=== PATIENT | male | born 1965 | race Two or more races ===

== ENCOUNTER → 2021-04-28 | Emergency (ER) | payer OTHER ==
[~2021-04-28] VITALS: Ht 172.7 cm; Wt 72.6 kg
[~2021-04-28] MED LIST: KETOROLAC TROMETH 60MG/2ML VIAL IM ONE
[2021-04-28 19:20] VITALS: BP 138/70
== END | disposition home or self-care (01) ==
LOC: EDUNIT# 17:25 → EDBD 17:35 → ER 17:35
DX: M51.26 Other intervertebral disc displacement, lumbar region (principal); M43.16 Spondylolisthesis, lumbar region; F17.210 Nicotine dependence, cigarettes, uncomplicated; V49.59XA Passenger injured in collision with other motor vehicles in traffic accident, initial encounter; Y93.89 Activity, other specified; Y92.410 Unspecified street and highway as the place of occurrence of the external cause; Y99.8 Other external cause status
CPT/HCPCS: 72100; 96372; 99283; J1885

== ENCOUNTER 2025-03-17 02:08 | Inpatient (IN) | payer OTHER ==
[2025-03-17] VITALS (7 sets, daily range): BP systolic 110–138; BP diastolic 67–86; PULSE 70–88; RESP 12–19; TEMP 98.1–98.6; O2SAT 94–97
[~2025-03-17] VITALS: Ht 175.3 cm; Wt 86.0 kg
[2025-03-17] MEDS: IOHEXOL 300 MG/ML 100ML BOTTLE IJ ONE (02:18)
--- NOTE | 2025-03-17 02:29 | ED.PDOC ---
History of Present Illness HPI Comments 60 y/o M presents with 1 hour RUQ pain. He rates it a 10/10 in severity and endorses on 1x episode of nausea and vomiting prior to arrival. No recent travel, injuries, spoiled food or illicit substances consumption, abdominal surgeries, or prior history of symptoms endorsed. Patient denies having any bilious or bloody vomitus, diarrhea, urinary symptoms, fever, chills, or further associated symptoms. Time Seen by MD: 02:10 Primary Care Provider: NONE Reviewed Notes: Nurses Notes, Medications, Allergies Allergies: Coded Allergies: NO KNOWN ALLERGIES (Unverified , 02/26/13) Information Source: Patient Mode of Arrival: Ambulatory Severity: Moderate Timing: Hours Duration: Since onset Prehospital treatment: None Past Medical History PAST MEDICAL HISTORY: Denies Surgical History: Denies all surgeries Family History Family History: No family hx of Cancer, No family hx of Heart [place] Social History Smoker: Less Than 1 Pack/Day Alcohol: Occasionally Drugs: Denies Drug Use Lives In: Home All Other Systems: Reviewed and Negative (Comprehensive systems review obtained and negative except for what is stated in the HPI.) Physical Exam General Appearance: No Apparent Distress, Normal HEENT: Normal ENT Inspection, Pharynx Normal, TMs Normal Neck: Full Range of Motion, Non-Tender, Normal, Normal Inspection Respiratory: Chest Non-Tender, Lungs Clear, No Accessory Muscle Use, No Respiratory Distress, Normal Breath Sounds Cardiovascular: No Edema, No JVD, No Murmur, No Gallop, Normal Peripheral Pulses, Regular Rate/Rhythm Breast Exam: Deferred Gastrointestinal: No Organomegaly, No Pulsatile Mass, Normal Bowel Sounds, RUQ (tenderness), Soft, Tenderness (RUQ) Genitalia: Deferred Pelvic: Deferred Rectal: Deferred Extremities: No calf tenderness, Normal capillary refill, Normal inspection, Normal range of motion, Non-tender, No pedal edema Musculoskeletal : Apperance: Normal Neurologic: Alert, 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 Was a procedure done?: No Differential Dx Considerations may include: Gastritis, gastroenteritis, GERD, PUD, cholecystitis, cholelithiasis, nephrolithiasis, UTI, viral syndrome, among others X-Ray, Labs, Meds, VS Vital Signs Date Time Temp Pulse Resp B/P (MAP) Pulse Ox O2 Delivery O2 Flow Rate FiO2 03/17/25 04:19 65 17 121/71 03/17/25 03:35 91 17 121/71 03/17/25 03:05 98.4 73 18 135/77 (96) 96 98.4 03/17/25 03:05 73 18 96 Room Air* 0 21 03/17/25 03:05 73 12 135/77 03/17/25 02:10 98.6 84 16 136/86 (103) 97 98.6 Lab Test 03/17/25 04:21 03/17/25 02:24 Range/Units Lactic Acid Level Pending White Blood Count 9.8 4.4-10.8 10^3/uL Red Blood Count 4.42 L 4.5-5.90 10^6/uL Hemoglobin 14.2 13.5-17.5 g/dL Hematocrit 41.8 41.0-53.0 % Mean Corpuscular Volume 94.5 80.0-100.0 fL Mean Corpuscular Hemoglobin 32.1 H 28.0-32.0 pg Mean Corpuscular Hemoglobin Concent 34.0 32.0-36.0 g/dL Red Cell Distribution Width 14.1 11.8-14.3 % Platelet Count 170 140-450 10^3/uL Mean Platelet Volume 8.8 6.9-10.8 fL Neutrophils (%) (Auto) 78.4 37.0-80.0 % Lymphocytes (%) (Auto) 14.7 10.0-50.0 % Monocytes (%) (Auto) 6.0 0.0-12.0 % Eosinophils (%) (Auto) 0.6 0.0-7.0 % Basophils (%) (Auto) 0.3 0.0-2.0 % Neutrophils # (Auto) 7.7 1.6-8.6 10 ^3/uL Lymphocytes # (Auto) 1.4 0.4-5.4 10 ^3/uL Monocytes # (Auto) 0.6 0-1.3 10 ^3/uL Eosinophils # (Auto) 0.1 0-0.8 10 ^3/uL Basophils # (Auto) 0 0-0.2 10 ^3/uL Nucleated Red Blood Cells 0.1 % Sodium Level 140 136-145 mmol/L Potassium Level 3.7 3.5-5.1 mmol/L Chloride Level 106 98-107 mmol/L Carbon Dioxide Level 28 20-31 mmol/L Anion Gap 6 5-15 Blood Urea Nitrogen 13 9-23 mg/dL Creatinine 1.00 0.700-1.30 mg/dL Glomerular Filtration Rate Calc 87 >90 mL/min BUN/Creatinine Ratio 13.0 10.0-20.0 Serum Glucose 120 H 74-106 mg/dL Calcium Level 9.1 8.7-10.4 mg/dL Total Bilirubin 0.3 0.2-1.0 mg/dL Aspartate Amino Transferase (AST) 15 13-40 U/L Alanine Aminotransferase (ALT) 22 7-40 U/L Alkaline Phosphatase 77 46-116 U/L Total Protein 6.7 5.7-8.2 g/dL Albumin 4.4 3.2-4.8 g/dL Lipase 63 H 12-53 U/L Plasma/Serum Blood Alcohol < 3.0 <10 mg/dL Current Medications Medications (Trade) Dose Ordered Sig/Marciano Route Start Time Stop Time Status Last Admin Sodium Chloride 1,000 ml @ 1,000 mls/hr Q1H ONCE IV 03/17/25 02:15 03/17/25 03:14 DC 03/17/25 03:06 Ondansetron HCl (Zofran) 4 mg ONCE ONCE IV 03/17/25 02:15 03/17/25 02:16 DC 03/17/25 03:06 Morphine Sulfate 4 mg ONCE ONCE IV 03/17/25 02:15 03/17/25 02:16 DC 03/17/25 03:05 Sodium Chloride 1,000 ml @ 1,000 mls/hr Q1H ONCE IV 03/17/25 04:15 03/17/25 05:14 03/17/25 04:12 Morphine Sulfate 4 mg ONCE ONCE IV 03/17/25 04:15 03/17/25 04:16 DC 03/17/25 04:19 Ondansetron HCl (Zofran) 4 mg ONCE ONCE IV 03/17/25 04:15 03/17/25 04:16 DC 03/17/25 04:18 Cefazolin Sodium/ Dextrose 50 ml @ 50 mls/hr ONCE ONCE IV 03/17/25 04:15 03/17/25 05:14 03/17/25 04:19 Time of 1ST Reevaluation: 02:40 Reevaluation 1ST: Unchanged Patient Education/Counseling: Diagnosis, Treatment Family Education/Counseling: No Family Present Additional Information Previous visits reviewed: April 28, 2021 encounter for back pain The following tests were ordered, and results were reviewed by me: CT abdomen/pelvis w/IV contrast, blood alcohol, lipase, CMP, CBC Additional Information was gathered from interviewing the following independent historians: N/A I reviewed and agreed with the following test results read by other providers: CT abdomen/pelvis w/IV contrast I discussed treatment and results with medical personnel and: patient Sepsis Sepsis Reasesment Focused Exam Orders: Laboratory Tests 03/17/25 04:21: Departure 1 Departure Time of Disposition: 04:50 (Patient presented with abdominal pain that was concerning for possible appendicits, gastritis, cholecystitis, colitis, gastroenteritis, sbo, or orther possible surgical emergency. Data: 1. I ordered and reviewed the result of at least 3 labs including a CBC, BMP, and Urinalysis. 2. I independently interpreted the following tests: CT Abdoment and Pelvis is co ncerning for cholelithiasis .Risk:This patient has a high risk of morbidity due to further diagnostic testing or treatment and may suffer from an acute abdominal process disorder. Workup reveals cholelithiasis and intractable abdominal pain and patient should be admitted for further workup. and possible expert consultation. ) Impression: Primary Impression: Intractable abdominal pain Additional Impression: Cholelithiasis Qualified Codes: K80.00 - Calculus of gallbladder with acute cholecystitis without obstruction Disposition: ADMITTED INPATIENT Admit to: Med Surg Condition: Serious Critical Care Note Critical Care Time?: Yes Critical care comment: Intractable abdominal pain Authorized and Performed by: Nidia Ríos MD Total critical care time: Approximately 48 minutes Due to a high probability of clinically significant, life threatening deterioration, the patient required my highest level of preparedness to intervene emergently and I personally spent this critical care time directly and personally managing the patient. This critical care time included obtaining a history; examining the patient; pulse oximetry; ordering and review of studies; arranging urgent treatment with development of a management plan; evaluation of patient's response to treatment; frequent reassessment; and, discussions with other providers. This critical care time was performed to assess and manage the high probability of imminent, life-threatening deterioration that could result in multi-organ failure. It was exclusive of separately billable procedures and treating other patients and teaching time. Please see my other sections and the rest of the note for further information on patient assessment and treatment. Stability Stability form required: No Heart Score Heart Score: Heart Score Response (Comments) Value History N/A 0 EKG N/A 0 Age N/A 0 Risk Factors N/A 0 Troponin N/A 0 Total 0 I personally scribed for NIDIA RÍOS MD ([email or web address]) on 03/17/25 at 02:29. Electronically submitted by Humberto Murrell ([email or web address]). NIDIA RÍOS MD Mar 17, 2025 02:29
[2025-03-17 02:33] LABS: Basophils # (auto) 0 10 ^3/uL (0-0.2); Basophils % (auto) 0.3 % (0.0-2.0); Eosinophils # (auto) 0.1 10 ^3/uL (0-0.8); Eosinophils % (auto) 0.6 % (0.0-7.0); Hematocrit 41.8 % (41.0-53.0); Hemoglobin 14.2 g/dL (13.5-17.5); Lymphocytes # (auto) 1.4 10 ^3/uL (0.4-5.4); Lymphocytes % (auto) 14.7 % (10.0-50.0); Mean Corpuscular Hemoglobin 32.1 pg (28.0-32.0); Mean Corpuscular Volume 94.5 fL (80.0-100.0); Monocytes # (auto) 0.6 10 ^3/uL (0-1.3); Neutrophils # (auto) 7.7 10 ^3/uL (1.6-8.6); Neutrophils % (auto) 78.4 % (37.0-80.0); Nucleated Red Blood Cells % 0.1 %; Platelet Count (auto) 170 10^3/uL (140-450); Red Blood Cells 4.42 10^6/uL (4.5-5.90); Red Cell Distribution Width 14.1 % (11.8-14.3); White Blood Cell 9.8 10^3/uL (4.4-10.8)
[2025-03-17 02:56] LABS: Alanine Aminotransferase 22 U/L (7-40); Albumin 4.4 g/dL (3.2-4.8); Alkaline Phosphatase 77 U/L (46-116); Anion Gap 6 (5-15); Aspartate Aminotransferase 15 U/L (13-40); Blood Urea Nitrogen 13 mg/dL (9-23); Calcium 9.1 mg/dL (8.7-10.4); Carbon Dioxide 28 mmol/L (20-31); Chloride 106 mmol/L (98-107); Glucose 120 mg/dL (74-106); Potassium 3.7 mmol/L (3.5-5.1); Sodium 140 mmol/L (136-145); Total Protein 6.7 g/dL (5.7-8.2)
[2025-03-17 02:57] LABS: Bilirubin, Total 0.3 mg/dL (0.2-1.0); Lipase 63 U/L (12-53)
[2025-03-17] MEDS: MORPHINE SULFATE 4 MG/ML SYR/VIAL IV ONE ×2 (03:05→04:19)
[2025-03-17] MEDS: SODIUM CHLORIDE 0.9% 1,000 ML IV ONE ×2 (03:06→04:12)
[2025-03-17] MEDS: ONDANSETRON HCL 4 MG/2 ML VIAL IV ONE ×2 (03:06→04:18)
[2025-03-17 03:10] LABS: Blood Alcohol < 3.0 mg/dL (<10)
--- NOTE | 2025-03-17 04:15 | DVH ---
Exam: CT CT AB PEL WITH IV CON ONLY History: ruq pain Comparison Study: None Contrast: Type of contrast: Omnipaque 300 Contrast injected: 100 cc Contrast wasted: 0 TECHNIQUE: CT scan of the abdomen pelvis was performed with intravenous contrast. Coronal and sagitt al reformatted images are submitted. Radiation Dose Information: CT Dose: CTDI volume is 19.79 mGy. Dose-length product is 1060.3 mGy*cm FINDINGS: Lung Bases: No acute or significant lung base finding. Normal heart size. No pleural or pericardial effusion. Liver: The liver is normal in size. No focal lesions. Normal hepatic vascular enhancement. Gallbladder and Biliary Tree: Gallstone. No intrahepatic biliary ductal dilatation. Spleen: Unremarkable Pancreas: The pancreas is normal in appearance without focal lesions or abnormal enhancement. Adrenal Glands: Unremarkable Kidneys: Kidneys demonstrate normal symmetric enhancement without focal lesions, calculi or hydroneph rosis. Bladder: Unremarkable Bowel: The stomach is grossly normal in appearance. The small bowel is normal in caliber. Colonic div erticulosis without acute diverticulitis. The appendix is visualized and is normal. Peritoneal cavity: No pneumoperitoneum. No ascites. Lymphadenopathy: No mesenteric, retroperitoneal or periportal lymphadenopathy. Abdominal Wall and Mesentery: Unremarkable. Vasculature: The visualized abdominal aorta is normal in size and caliber. Abdominal and pelvic vess els demonstrate normal enhancement. Pelvic Organs: Unremarkable Musculoskeletal: No aggressive focal bony lesions, acute fractures or dislocation. Multilevel lumbar spondylosis. Soft tissues: Fat containing umbilical hernia. IMPRESSION: 1. No acute abnormality in the abdomen or pelvis. 2. Colonic diverticulosis without acute diverticulitis. 3. Gallstone. Right upper quadrant ultrasound recommended for further evaluation. All CT scans at this medical facility are performed using dose modulation techniques as appropriate t o a performed exam including the following: Automated exposure control was utilized; adjustment of th e MA and/or KV according to patient size; and use of iterative reconstruction technique.
[2025-03-17] MEDS: ceFAZolin 2 GM/D5W50ml 50 ML IV ONE (04:19)
[2025-03-17] MEDS: metroNIDAZOLE 500MG/100ML 100 ML IV ONE (05:31)
[2025-03-17] MEDS ORDERED: MORPHINE SULFATE INJ 2 MG/ml SYRG IV PRN ×2 (05:45)
[2025-03-17] MEDS ORDERED: NITROGLYCERIN 0.4 MG SL TAB SL PRN (05:45)
[2025-03-17 05:58] LABS: Urine Bacteria FEW /hpf (None Seen); Urine Blood Negative /uL (Negative); Urine Clarity Clear (Clear); Urine Color Yellow (Yellow); Urine Mucus FEW (None Seen); Urine Protein, UAD Negative (Negative); Urine Specific Gravity 1.031 (1.001-1.035); Urine Squamous Epithelial Cell FEW /hpf (<5); Urine Urobilinogen Normal (Negative)
[2025-03-17 06:00] LABS: Urine WBC < 1 /HPF (0-3)
[2025-03-17] MEDS: MORPHINE SULFATE 4 MG/ML SYR/VIAL IV PRN (06:20)
--- NOTE | 2025-03-17 06:24 | DVHHPRES ---
History of Present Illness Resident Creating Document: MARIA ESTHER CESAR RESIDENT Reason for Visit: acute abdominal pain History of Present Illness 60 year old male patient with not known past medicla history who presented to the ER with the chief complaint of acute right upper quadrant abdominal pain th at started 1 day ago , progressively getting worse, currently 5/10 intensity that increases on palpation (Kapoor positive), associated with nausea and vomiting, patient denies any other complaint at this time. CT abdomen showed cholelithiasis , diverticulosis withiout diverticulitis, vitals remain stable . surgery was consulted for further evaluation, we will keep the patient NPO. Patient is poor historian. past surgical history: denies past social history: alcohol occasionally smokes 6 cigarettes daily , last time was yesterday allergies: no known allergies family history : denies Past Surgical History: None Family History: None Smoke: <1 pack per day ALCOHOL: occassional Drugs: None Lives: Friends Domestic Violence: Neg Review of Systems Constitutional: Yes: Weakness, Malaise; No: Fever, Chills, Sweats, Other Eyes: No: Pain, Vision change, Conjunctivae inflammation, Eyelid inflammation, Other, Redness ENT: No: Ear pain, Ear discharge, Nose pain, Nose discharge, Nose congestion, Mouth pain, Mouth swelling, Throat pain, Throat swelling, Other Respiratory: No: Cough, Dry, Shortness of breath, SOB with excertion, Wheezing, Hemoptysis, Pleuritic Pain, Sputum, Wheezing, Other Cardiovascular: No: Chest Pain, Palpitations, Orthopnea, Paroxysmal Noc. Dyspnea, Edema, Lt Headedness, Other Gastrointestinal: Nausea, Abdominal Pain; No: Diarrhea, Constipation, Melena, Hematochezia, Other Genitourinary: No Dysuria, No Frequency, No Incontinence, No Hematuria, No Retention, No Other Musculoskeletal: No: other, neck pain, shoulder pain, arm pain, back pain, hand pain, leg pain, foot pain Skin: No: Rash, Lesions, Jaundice, Bruising, Other Neurological: No: Weakness, Numbness, Incoordination, Change in speech, Confusion, Seizures, Other Allergies: Coded Allergies: NO KNOWN ALLERGIES (Unverified , 02/26/13) Medications Current Medications Medications Dose Ordered Sig/Marciano Route Start Time Stop Time Status Last Admin Dose Admin Morphine Sulfate 2 mg Q4HPRN PRN IV 03/17/25 05:45 UNV Nitroglycerin 0.4 mg Q5MINP PRN SL 03/17/25 05:45 UNV Morphine Sulfate 2 mg Q30M PRN IV 03/17/25 05:45 UNV Exam Vital Signs Vital Signs Date Time Temp Pulse Resp B/P (MAP) Pulse Ox O2 Delivery O2 Flow Rate FiO2 03/17/25 05:00 86 12 131/75 (93) 95 03/17/25 03:05 98.4 98.4 03/17/25 03:05 Room Air* 0 21 General Appearance: Alert, Oriented X3, Cooperative, moderate distress HEENT: Atraumatic, PERRLA, Mucous membr. moist/pink Respiratory: Clear to auscultation, Normal air movement Cardiovascular: Regular rate, Normal S1, Normal S2, No murmurs Abdominal: Normal bowel sounds, Soft, No tenderness Extremities: No clubbing, No cyanosis, Other (bilateral lower extremity edema 2+) Skin: No rashes, No breakdown Neuro: Normal gait, Normal tone, Sensation intact Labs/Xrays Labs Test 03/17/25 04:21 03/17/25 02:24 03/17/25 02:15 Range/Units Lactic Acid Level 1.3 0.4-2.0 mmol/L White Blood Count 9.8 4.4-10.8 10^3/uL Red Blood Count 4.42 L 4.5-5.90 10^6/uL Hemoglobin 14.2 13.5-17.5 g/dL Hematocrit 41.8 41.0-53.0 % Mean Corpuscular Volume 94.5 80.0-100.0 fL Mean Corpuscular Hemoglobin 32.1 H 28.0-32.0 pg Mean Corpuscular Hemoglobin Concent 34.0 32.0-36.0 g/dL Red Cell Distribution Width 14.1 11.8-14.3 % Platelet Count 170 140-450 10^3/uL Mean Platelet Volume 8.8 6.9-10.8 fL Neutrophils (%) (Auto) 78.4 37.0-80.0 % Lymphocytes (%) (Auto) 14.7 10.0-50.0 % Monocytes (%) (Auto) 6.0 0.0-12.0 % Eosinophils (%) (Auto) 0.6 0.0-7.0 % Basophils (%) (Auto) 0.3 0.0-2.0 % Neutrophils # (Auto) 7.7 1.6-8.6 10 ^3/uL Lymphocytes # (Auto) 1.4 0.4-5.4 10 ^3/uL Monocytes # (Auto) 0.6 0-1.3 10 ^3/uL Eosinophils # (Auto) 0.1 0-0.8 10 ^3/uL Basophils # (Auto) 0 0-0.2 10 ^3/uL Nucleated Red Blood Cells 0.1 % Sodium Level 140 136-145 mmol/L Potassium Level 3.7 3.5-5.1 mmol/L Chloride Level 106 98-107 mmol/L Carbon Dioxide Level 28 20-31 mmol/L Anion Gap 6 5-15 Blood Urea Nitrogen 13 9-23 mg/dL Creatinine 1.00 0.700-1.30 mg/dL Glomerular Filtration Rate Calc 87 >90 mL/min BUN/Creatinine Ratio 13.0 10.0-20.0 Serum Glucose 120 H 74-106 mg/dL Calcium Level 9.1 8.7-10.4 mg/dL Total Bilirubin 0.3 0.2-1.0 mg/dL Aspartate Amino Transferase (AST) 15 13-40 U/L Alanine Aminotransferase (ALT) 22 7-40 U/L Alkaline Phosphatase 77 46-116 U/L Total Protein 6.7 5.7-8.2 g/dL Albumin 4.4 3.2-4.8 g/dL Lipase 63 H 12-53 U/L Plasma/Serum Blood Alcohol < 3.0 <10 mg/dL Assessment/Plan Assessment/Plan Assessment: Acute RUQ abdominal pain likely biliary colic, rule out acute cholecystitis intractable vomiting episodes cholelithiasis History of Nicotine dependency Diverticulosis without diverticulitis Plan: admit patient to [facility] inpatient keep patient NPO IV fluids surgical consultation CT abdomen/pelvis showed cholelithiasis IV antibiotics , cefazolin and metronidazole chest x ray Zofran IV case discussed with code status: full code Plan discussed with: Patient My Orders Orders - MARIA ESTHER CESAR RESIDENT Procedure Category Date Status Time Admit ADMIT 03/17/25 Transmitted 05:42 Allergies ZAHIDA 03/17/25 Transmitted 05:42 Code Status CODE 03/17/25 Transmitted 05:42 Fall Risk Precautions ZAHIDA 03/17/[address] 05:42 Complete Blood Count LAB 03/18/25 Verified 04:00 Comprehensive LAB 03/18/25 Verified Metabolic Panel 04:00 Npo (Nothing By DIET 03/17/25 Transmitted Mouth) Diet Breakfast Condition: Unstable ZAHIDA 03/17/25 In Process 05:42 Morphine Sulfate PHA 03/17/25 In Process Injection 05:45 Nitroglycerin PHA 03/17/25 In Process Sublingual (Ntrostat 05:45 Morphine Sulfate PHA 03/17/25 In Process Injection 05:45 Oxygen By Nasal RT 03/17/25 Transmitted Cannula 05:42 Stat Ekg For Chest [facility] 03/17/25 In Process Pain 05:42 Notify Md Of Changes [facility] 03/17/25 In Process From Base 05:42 Chair Finisher For [facility] 03/17/25 In Process 24 Hours 05:42 Emergency Dysrhythmia [facility] 03/17/25 In Process Protocol 05:42 Rhythm Strips Once [facility] 03/17/25 In Process Every Shift 05:42 Date of Service: Mar 17, 2025 Billing Provider: ARRON TREVINO MD Common Visit Codes: 01879-[id number] INP/OBS CARE (HIGH) MARIA ESTHER CESAR RESIDENT Mar 17, 2025 06:24 ARRON TREVINO MD Mar 17, 2025 21:49
[2025-03-17] MEDS ORDERED: MORPHINE SULFATE 4 MG/ML SYR/VIAL IV PRN (06:30)
[2025-03-17 07:28] LABS: Amphetamine Screen, Urine Pos (NEGATIVE); Barbiturate Scree,Urine Neg (NEGATIVE); Benzodiazephine Screen, Urine Neg (NEGATIVE); Cannabinoid Screen, Urine Neg (NEGATIVE); Cocaine Screen, Urine Neg (NEGATIVE); Opiate Scree,Urine Neg (NEGATIVE); Phencyclidine Screen, Urine Neg (NEGATIVE)
--- NOTE | 2025-03-17 07:33 | DVH ---
CHEST RADIOGRAPH Indication: pna Technique: Single frontal view of the chest was obtained COMPARISON: None FINDINGS: Lines and Tubes: None Lungs: Increased interstitial prominence Pleura: No effusion. No pneumothorax. Cardiomediastinal contours: Unremarkable Bones: Unremarkable IMPRESSION: Viral pneumonia versus pulmonary vascular congestion
[2025-03-17 07:37] LABS: COVID19 ANTIGEN SOFIA FIA NEGATIVE (NEGATIVE); Rapid Influenza A Negative (Negative); Rapid Influenza B Negative (Negative)
--- NOTE | 2025-03-17 08:10 | DVH ---
INDICATION: RUQ pain, cholecystitis TECHNIQUE: Multiple real-time sonographic images were obtained of the right upper quadrant. COMPARISON: None FINDINGS: The liver demonstrates heterogeneous echotexture without focal mass lesions. The liver jocelyn ures 19cm. There is no intrahepatic or extrahepatic ductal dilatation. The common duct measures 0. 4 mm. Gallbladder sludge with gallstones. The gallbladder wall measures 0.3 mm and is within normal limits . The right kidney measures 12 cm. The right kidney is normal in contour, size, and shape. The echogen icity is normal. There is no hydronephrosis. The pancreas is not well visualized due to overlying bowel gas. IMPRESSION: Gallbladder sludge with gallstones. Hepatic steatosis
--- NOTE | 2025-03-17 08:41 | DVHINCON2 ---
Consultation - Surgical Date Seen: Mar 17, 2025 Referring Physician Referring Physician ER Reason for Consultation abd pain History of Present Illness History of Present Illness 60M w no PMHx w 1d h/o postprandial RUQ abd pain radiating to back. Pain started after dinner and has persisted but fluctuated in intensity w/o any aggravating factors. No reported h/o similar postprandial pain. Past Medical/Surgical History Past Medical/Surgical History PMHx: none PSx: none Family and Social History Family and Social History +tobacco, denies drugs etoh Allergies and medications Allergies: Coded Allergies: NO KNOWN ALLERGIES (Unverified , 02/26/13) Current Medications Current Medications Medications (Trade) Dose Ordered Sig/Marciano Route PRN Reason Start Time Stop Time Status Last Admin Ceftriaxone Sodium 50 ml @ 100 mls/hr DAILY@09 IV 03/17/25 09:00 03/17/25 08:57 Metronidazole 100 ml @ 100 mls/hr Q8HR IV 03/17/25 09:30 Morphine Sulfate 2 mg Q30M PRN IV FOR CHEST PAIN 03/17/25 06:30 Morphine Sulfate 2 mg Q4HPRN PRN IV SEVERE PAIN (7-10 PAIN SCALE) 03/17/25 06:15 03/17/25 06:20 Nitroglycerin (Ntrostat Sublingual) 0.4 mg Q5MINP PRN SL FOR CHEST PAIN 03/17/25 05:45 Review of systems Review of Systems: HEENT:Normal, CVS:Normal, RESPIRATORY:Normal, GI:Abnormal (abd pain, nausea), :Normal, MSK:Normal, NEURO:Normal Examination Vital signs Vital Signs Date Time Temp Pulse Resp B/P (MAP) Pulse Ox O2 Delivery O2 Flow Rate FiO2 03/17/25 07:18 98.2 82 13 131/66 (87) 95 98.2 03/17/25 07:12 Room Air* 0 21 Medications Current Medications Medications (Trade) Dose Ordered Sig/Marciano Route PRN Reason Start Time Stop Time Status Last Admin Morphine Sulfate 2 mg Q4HPRN PRN IV SEVERE PAIN (7-10 PAIN SCALE) 03/17/25 05:45 03/17/25 06:10 DC Nitroglycerin (Ntrostat Sublingual) 0.4 mg Q5MINP PRN SL FOR CHEST PAIN 03/17/25 05:45 Morphine Sulfate 2 mg Q30M PRN IV FOR CHEST PAIN 03/17/25 05:45 03/17/25 06:17 DC Morphine Sulfate 2 mg Q4HPRN PRN IV SEVERE PAIN (7-10 PAIN SCALE) 03/17/25 06:15 03/17/25 06:20 Morphine Sulfate 2 mg Q30M PRN IV FOR CHEST PAIN 03/17/25 06:30 Ceftriaxone Sodium 50 ml @ 100 mls/hr DAILY@09 IV 03/17/25 09:00 Laboratory Labs Test 03/17/25 06:56 03/17/25 04:21 03/17/25 02:24 03/17/25 02:15 Range/Units Influenza Type A Antigen Negative Negative Influenza Type B Antigen Negative Negative SARS-CoV-2 Antigen (Rapid) Negative NEGATIVE Lactic Acid Level 1.3 0.4-2.0 mmol/L White Blood Count 9.8 4.4-10.8 10^3/uL Red Blood Count 4.42 L 4.5-5.90 10^6/uL Hemoglobin 14.2 13.5-17.5 g/dL Hematocrit 41.8 41.0-53.0 % Mean Corpuscular Volume 94.5 80.0-100.0 fL Mean Corpuscular Hemoglobin 32.1 H 28.0-32.0 pg Mean Corpuscular Hemoglobin Concent 34.0 32.0-36.0 g/dL Red Cell Distribution Width 14.1 11.8-14.3 % Platelet Count 170 140-450 10^3/uL Mean Platelet Volume 8.8 6.9-10.8 fL Neutrophils (%) (Auto) 78.4 37.0-80.0 % Lymphocytes (%) (Auto) 14.7 10.0-50.0 % Monocytes (%) (Auto) 6.0 0.0-12.0 % Eosinophils (%) (Auto) 0.6 0.0-7.0 % Basophils (%) (Auto) 0.3 0.0-2.0 % Neutrophils # (Auto) 7.7 1.6-8.6 10 ^3/uL Lymphocytes # (Auto) 1.4 0.4-5.4 10 ^3/uL Monocytes # (Auto) 0.6 0-1.3 10 ^3/uL Eosinophils # (Auto) 0.1 0-0.8 10 ^3/uL Basophils # (Auto) 0 0-0.2 10 ^3/uL Nucleated Red Blood Cells 0.1 % Sodium Level 140 136-145 mmol/L Potassium Level 3.7 3.5-5.1 mmol/L Chloride Level 106 98-107 mmol/L Carbon Dioxide Level 28 20-31 mmol/L Anion Gap 6 5-15 Blood Urea Nitrogen 13 9-23 mg/dL Creatinine 1.00 0.700-1.30 mg/dL Glomerular Filtration Rate Calc 87 >90 mL/min BUN/Creatinine Ratio 13.0 10.0-20.0 Serum Glucose 120 H 74-106 mg/dL Hemoglobin A1c 5.7 <5.7 % A1C Calcium Level 9.1 8.7-10.4 mg/dL Total Bilirubin 0.3 0.2-1.0 mg/dL Aspartate Amino Transferase (AST) 15 13-40 U/L Alanine Aminotransferase (ALT) 22 7-40 U/L Alkaline Phosphatase 77 46-116 U/L B-Type Natriuretic Peptide 12.18 0-100 pg/mL Total Protein 6.7 5.7-8.2 g/dL Albumin 4.4 3.2-4.8 g/dL Lipase 63 H 12-53 U/L Thyroid Stimulating Hormone (TSH) 4.06 0.55-4.78 uIU/mL Plasma/Serum Blood Alcohol < 3.0 <10 mg/dL Urine Color Yellow Yellow Urine Clarity Clear Clear Urine pH 6.0 5.0-9.0 Urine Specific [place] 1.031 1.001-1.035 Urine Protein Negative Negative Urine Ketones Negative Negative Urine Blood Negative Negative /uL Urine Nitrite Negative Negative Urine Bilirubin Negative Negative Urine Urobilinogen Normal Negative mg/dL Urine Leukocyte Esterase Negative Negative /uL Urine RBC <1 0 - 3 /hpf Urine Microscopic WBC < 1 0-3 /HPF Urine Squamous Epithelial Cells Few <5 /hpf Urine Bacteria Few H None Seen /hpf Urine Mucus Few None Seen Urine Glucose Normal Normal mg/dL Urine Opiates Screen Neg NEGATIVE Urine Fentanyl Screen Neg NEGATIVE Urine Barbiturates Screen Neg NEGATIVE Urine Phencyclidine Screen Neg NEGATIVE Urine Amphetamines Screen Pos NEGATIVE Urine Benzodiazepines Screen Neg NEGATIVE Urine Cocaine Screen Neg NEGATIVE Urine Cannabinoids Screen Neg NEGATIVE Examination: GENERAL:Normal (NAD, wd/wn), HEENT:Normal (anicteric, EOMI), NECK:Normal (supple, trachea midline), LUNGS:Normal (CTAB, unlabored and symmetrical ), CVS:Normal (RRR, no mrg), ABDOMEN:Abnormal (soft, nondistended, RUQ tenderness, no justin/guarding), MSK:Normal (atraumatic, full ROM in b/l UE and LE), SKIN:Normal (anicteric, warm well perfused), NEURO:Normal (nonfocal, a&ox3) Problem List/Assessment/Plan Problems: (1) Cholelithiasis (2) Intractable abdominal pain Assessment and Plan 60M w no PMHx w 1d h/o postprandial RUQ abd pain. WBC and LFTs wnl RUQ US w choleithiasis and mild GB wall thickening biliary colic symptomatic cholelithiasis calculous cholecystitis nicotine dependency - OR jeannette for lap felipe if medically cleared by admitting service - pt undergoing ECHO currently, will f/u prior to surgery - CLD, NPO after MN - analgesics prn - no ABX indicated from surgical stand point - Nicotine cessation discussed and encouraged, counselling provided - vte ppx, ok for chemical ppx from surgical standpoint Jordy Wilhelm MD [phone] Plan discussed with Plan discussed with: Patient Visit Coding Surgery Date of Service if different f: Mar 17, 2025 Billing Provider: JORDY WILHELM MD Surgery Visit Codes: [id number] - INP CONSULT <55 MIN JORDY WILHELM MD Mar 17, 2025 08:41
[2025-03-17] MEDS: cefTRIAXone 1GM/50ML D5W 50 ML IV SCH (08:57)
[2025-03-17] MEDS: metroNIDAZOLE 500MG/100ML 100 ML IV SCH (09:30)
--- NOTE | 2025-03-17 10:33 | DVHPNRES ---
Progress Note Date Seen: Mar 17, 2025 Resident Creating Document: LLOYD JAMISON RESIDENT Has the PT tested + for MRSA If YES, has PT been informed?: No Medical Necessity Reason Pt with a Central, PICC or Fol: No Subjective Review of Systems A 60 year old male patient with no PMHX who presented to the ER with the chief complaint of acute right upper quadrant abdominal pain that started 1 day ago , progressively getting worse, currently 5/10 intensity that increases on palpation , associated with nausea and vomiting, patient denies any other complaint at this time. CT abdomen showed cholelithiasis , diverticulosis withiout diverticulitis, vitals remain stable . surgery was consulted for further evaluation: cholecystectomy tomorrow am Patient is poor historian. past surgical history: denies past social history: alcohol occasionally meth positive smokes 6 cigarettes daily , last time was yesterday allergies: no known allergies Objective vital signs Vital Sign Date Time Temp Pulse Resp B/P (MAP) Pulse Ox O2 Delivery O2 Flow Rate FiO2 03/17/25 10:00 98.2 67 11 135/78 (97) 95 98.2 03/17/25 07:12 Room Air* 0 21 Total Intake and Output 03/16/25 03/16/25 03/17/25 15:00 23:00 07:00 Intake Total 2150 ml Balance 2150 ml medications Current Medications Medications Dose Ordered Sig/Marciano Route Start Time Stop Time Status Last Admin Dose Admin Nitroglycerin 0.4 mg Q5MINP PRN SL 03/17/25 05:45 Morphine Sulfate 2 mg Q4HPRN PRN IV 03/17/25 06:15 03/17/25 06:20 2 MG Morphine Sulfate 2 mg Q30M PRN IV 03/17/25 06:30 Ceftriaxone Sodium 50 ml @ 100 mls/hr DAILY@09 IV 03/17/25 09:00 03/17/25 08:57 100 MLS/HR Metronidazole 100 ml @ 100 mls/hr Q8HR IV 03/17/25 09:30 Examination General Appearance: Alert, Oriented X3, Cooperative, moderate distress HEENT: Atraumatic, PERRLA, Mucous membr. moist/pink Respiratory: Clear to auscultation, Normal air movement Cardiovascular: Regular rate, Normal S1, Normal S2, No murmurs Abdominal: tenderness RUQ, adorno + Extremities: bilateral lower extremity edema 2+ Skin: No rashes, No breakdown Neuro: Normal gait, Normal tone, Sensation intact laboratory and microbiology Laboratory Tests 03/17/25 02:24 Test 03/17/25 02:24 Range/Units Serum Glucose 120 H 74-106 mg/dL Problem List/Assessment/Plan Problem List/Assessment/Plan #Acute intractable abdominal pain #Acute intractable emesis #biliary colic #symptomatic cholelithiasis #calculous cholecystitis #nicotine dependency #meth abuse #Diverticulosis without diverticulitis keep patient NPO IV fluids surgical consultation: surgery tomorrow, patient is medical stable for surgery RSCI score 0 CT abdomen/pelvis showed cholelithiasis IV antibiotics , ceftriaxone and metronidazole Zofran IV case discussed with code status: full code Plan discussed with: Patient, Other (rn) My Orders My Orders Orders - LLOYD JAMISON Procedure Category Date Status Time Metronidazole PHA 03/17/25 In Process 500mg/100ml (Flagyl 09:30 Date of Service: Mar 17, 2025 Billing Provider: HERNÁN GRANDE MD Common Visit Codes: [id number] INP/OBS CARE(HIGH) LLOYD JAMISON Mar 17, 2025 10:33 HERNÁN GRANDE MD Mar 18, 2025 09:18
[2025-03-17 12:39] LABS: Hepatitis B Surface Antigen Negative (Negative)
[2025-03-17 12:44] LABS: Hepatitis C Antibody Negative (Negative)
[2025-03-17] MEDS: SODIUM CHLORIDE 0.9% 1,000 ML IV SCH (13:58)
[2025-03-17] MEDS ORDERED: ONDANSETRON HCL 4 MG/2 ML VIAL IV PRN (16:00)
--- NOTE | 2025-03-17 16:26 | DVHSR ---
APPROVED REPORT EXAM: Two-dimensional and M-mode echocardiogram with Doppler and color Doppler. Blood Pressure: 131/66 mmHg INDICATION CHF RISK FACTORS Height: 69, Weight: 165 DIMENSIONS LVDd5.4 (3.8-5.7cm)LA (2D)4.4 (1.9-4.0cm)Aortic Root3.8 (2.0-3.7cm) LVDs3.8 (2.5-4.0cm)LA (MM) (1.9-4.0cm)Aortic Cusp Exc1.6 (1.5-2.0cm) EF (%) 55.0 (55-70%)Rt. Atrium4.4 (1.9-4.0cm)Asc. Aorta cm Mitral Valve MitralMitral Stenosis E wave0.74m/sMV Mean GR.mmHg A wave0.79m/sMV Peak GR.mmHg E/A ratio0.92D MVAcm2 DECEL [id number] 1/2 [id number] IVRTmsDop MVA3.50cm2 Aortic Valve Aortic ValveAortic Stenosis V11.01m/Alisia Mean GR.3mmHg V21.19m/Alisia Peak GR.6mmHg LVOT Diameter2.0 (1.8-2.4cm)Doppler AVA2.67cm2 Pulmonic Valve V21.02m/s Tricuspid Valve TR Velocity2.66m/s [id number] Other Information Technically limited study due to body habitus. Conclusion lvef 70% by visual estimate normal rv function normal atria no severe valve abnormalities noted
[2025-03-18] VITALS (8 sets, daily range): BP systolic 100–125; BP diastolic 45–74; PULSE 79–99; RESP 11–20; TEMP 96.7–98.5; O2SAT 92–97
[2025-03-18] MEDS: ROCURONIUM 10MG/ML 10ML VIAL IV ONE (06:32)
[2025-03-18] MEDS: SUCCINYLCHOLINE CHLORIDE 20 MG/ML 10ML VIAL IV ONE (06:32)
[2025-03-18] MEDS ORDERED: KETAMINE 50mg/ML 1ml syringe ONE (06:35)
[2025-03-18] MEDS ORDERED: SODIUM CHLORIDE LOCK 10 ML ONE (06:36)
[2025-03-18] MEDS ORDERED: HYDROmorphone HCL 2 MG/ML VL/or syr ONE (06:36)
[2025-03-18] MEDS ORDERED: fentaNYL CITRATE 100 MCG/2 ML VL ONE (06:36)
[2025-03-18] MEDS ORDERED: PROPOFOL 10 MG/ML 20 ML IV ONE (06:36)
[2025-03-18] MEDS ORDERED: MIDAZOLAM HCL 2MG/2ML 2ml VIAL (1mg/ml) ONE (06:36)
[2025-03-18] MEDS ORDERED: LIDOCAINE 1% INJ PF 5ML AMP ONE (06:36)
[2025-03-18] MEDS ORDERED: LIDOCAINE HCL 2% TOP JELLY 5ML TOP ONE (06:36)
[2025-03-18] MEDS ORDERED: DexAMETHasone SOD PHOS 10MG/1ML VIAL INJ ONE (06:36)
[2025-03-18] MEDS ORDERED: ONDANSETRON HCL 4 MG/2 ML VIAL ONE (06:36)
[2025-03-18] MEDS ORDERED: MORPHINE SULFATE INJ 2 MG/ml SYRG IV PRN (07:00)
[2025-03-18] MEDS: KETOROLAC TROMETH 30 MG/ML 1ML VIAL IV ONE (07:00)
[2025-03-18] MEDS: METOCLOPRAMIDE HCL 5MG/ml INJ 2ml VIAL IV ONE (07:00)
[2025-03-18] MEDS ORDERED: MORPHINE SULFATE 4 MG/ML SYR/VIAL IV PRN ×2 (07:00→10:15)
[2025-03-18] MEDS ORDERED: HYDROmorphone HCL 2 MG/ML VL/or syr IV PRN ×2 (07:00)
[2025-03-18] MEDS: ceFAZolin 2 GM/D5W50ml 50 ML IV ONE (07:20)
[2025-03-18] MEDS ORDERED: NEOSTIGMINE 1 MG/ML INJ (10mg/10ML VIAL) ONE (07:52)
[2025-03-18] MEDS ORDERED: GLYCOPYRROLATE 0.2 MG/ML 1ML VIAL ONE (07:52)
[2025-03-18] MEDS: BUPIVACAINE HCL 0.25% P/F 10 ML VIAL ONE (08:29)
[2025-03-18] MEDS: LIDOCAINE W/ EPINEPHRINE 1% 20ML VIAL ONE (08:31)
[2025-03-18] MEDS: POVIDONE IODINE 10 % TOPICAL OINT 30GM TOP ONE (09:38)
--- NOTE | 2025-03-18 09:38 | DVHOP2 ---
Operative Report - 2 Report Details Date: 03/18/25 Preop Diagnosis: symptomatic cholelithiasis acute calculous cholecystitis Postop Diagnosis: acute on chronic cholecystitis gangrenous calculous cholecystitis Surgeon: Meredith Wilhelm MD Glazing Superintendent: Angelika Lopez Anesthesiologist: Dr Perez Anesthesia: General Drains: DIONISIO Consent: The patient was informed of the risks and benefits of the procedure. These include but are not limited to complications of anesthesia, postoperative infection, incomplete relief of symptoms, recurrence of symptoms, damage to blood vessels, nerves and tendons, deep venous thrombosis, pulmonary embolism and possible need for repeat surgery in the future. Estimated Blood Loss: 50cc Findings: suppurative pericholecystic fluid distended edematous gallbladder with gangrenous upper gallbladder wall surface extensive pericholecystic adhesions requiring extensive meticulous dissection for exposure of critical view Name of Procedure Performed laparoscopic cholecystectomy Procedure Details Procedure Details: The patient was taken to the operating room and placed in the supine position. General endotracheal anesthesia was then induced. The patients abdomen was sterilely prepped and draped in the standard surgical fashion. An incision was then made supraumbilically with an 11 blade knife and Veress nee dle was inserted into the peritoneum and the abdomen was insufflated to 15mmHg. Veress was removed and a 6mm optiview trochar was inserted under visualization. Peritoneum was inspected and no entry related injuries appreciated. Patient was positioned with the head up and right side airplaned. Next under visualization 15mm trochar was inserted in the upper epigastrium and two additional 5mm working trochars in the right costal margin. Attention was than turned to the RUQ. Purulent serous ascited was noted in the RUQ and a fluid sample was suctioned and sent for C&S. The gallbladder was masked with extensive omental adhesions which were carefully bluntly. Once the gallbladder was exposed it was very distended and rigid and required decompression to be grasped. The gallbladder was very edematous and thick walled, and the upper portion of the gallbladder was necrotic/gangrenous. The gallbladder was retracted superiorly and outwards exposing the cystic triangle. This was carefully bluntly skeletonized finally exposing the critical view showing two structures only. Than the cystic duct was double clipped and additional upper clip placed, and than sharply divided between the clips. Similarly, the cystic artery was clipped and divided. The gallbladder was freed from its peritoneal attachments using a harmonic [place] scalpel. Once fully freed, endoscopic retrieval bag was inserted and the gallbladder was removed through the epigastric port. The epigastric fascial opening had to be widened in order to allow delivery due to a large stone inside the lumen. Once the gallbladder was passed off, the liver bed was inspected and any bleeding was coagulated. Once hemostasis was achieved, the RUQ was suctioned and irrigated. Hemostasis was again confirmed. A DIONISIO drain was inserted along the liver bed and externalized through the upper right costal port side, and secured with a nylon suture. Insufflation was than released and all trochars removed. The fascia of the epigastric port was reapproximated with 2-0 Vicryl suture in figure of 8 fashion. The skin of all port sites was than closed with Monocryl in a subcuticular fashion, and Dermabond was applied over the incision sites. All needle, instrument and sponge counts correct times two. Patient was extubated and transferred to the recovery room in stable condition. No intraoperative complications. Specimen: gallbladder peritoneal fluid for C&S Condition Stable Disposition Acute Care Facility MEREDITH WILHELM MD Mar 18, 2025 09:38
[2025-03-18 10:00] LABS: Basophils # (auto) 0 10 ^3/uL (0-0.2); Basophils % (auto) 0.1 % (0.0-2.0); Eosinophils # (auto) 0.2 10 ^3/uL (0-0.8); Eosinophils % (auto) 1.3 % (0.0-7.0); Hematocrit 41.3 % (41.0-53.0); Hemoglobin 14.2 g/dL (13.5-17.5); Lymphocytes # (auto) 1.1 10 ^3/uL (0.4-5.4); Lymphocytes % (auto) 9.1 % (10.0-50.0); Mean Corpuscular Hgb Conc. 34.2 g/dL (32.0-36.0); Mean Corpuscular Volume 93.6 fL (80.0-100.0); Monocytes # (auto) 0.9 10 ^3/uL (0-1.3); Monocytes % (auto) 7.1 % (0.0-12.0); Neutrophils # (auto) 10.1 10 ^3/uL (1.6-8.6); Neutrophils % (auto) 82.4 % (37.0-80.0); Platelet Count (auto) 150 10^3/uL (140-450); Red Blood Cells 4.42 10^6/uL (4.5-5.90); Red Cell Distribution Width 13.8 % (11.8-14.3); White Blood Cell 12.3 10^3/uL (4.4-10.8)
--- NOTE | 2025-03-18 10:03 | DVHPNRES ---
Progress Note Date Seen: Mar 18, 2025 Resident Creating Document: LLOYD JAMISON RESIDENT Has the PT tested + for MRSA If YES, has PT been informed?: No Medical Necessity Reason Pt with a Central, PICC or Fol: No Subjective Review of Systems A 60 year old male patient with no PMHX who presented to the ER with the chief complaint of acute right upper quadrant abdominal pain that started 1 day ago , progressively getting worse, currently 5/10 intensity that increases on palpation , associated with nausea and vomiting, patient denies any other complaint at this time. CT abdomen showed cholelithiasis , diverticulosis withiout diverticulitis, vitals remain stable . Patient is poor historian. past surgical history: denies past social history: alcohol occasionally meth positive smokes 6 cigarettes daily , last time was yesterday allergies: no known allergies 03/18/2025: patient had laparoscopic cholecystectomy: distended edematous gallbladder with gangrenous upper gallbladder wall surface, with no complications Objective vital signs Vital Sign Date Time Temp Pulse Resp B/P (MAP) Pulse Ox O2 Delivery O2 Flow Rate FiO2 03/18/25 09:50 77 14 107/63 (78) 94 03/18/25 09:18 97.6 97.6 03/18/25 09:18 Mask 7.0 99 Total Intake and Output 03/17/25 03/17/25 03/18/25 15:00 23:00 07:00 Intake Total 50 ml 200 ml Output Total 600 ml Balance 50 ml -400 ml medications Current Medications Medications Dose Ordered Sig/Marciano Route Start Time Stop Time Status Last Admin Dose Admin Nitroglycerin 0.4 mg Q5MINP PRN SL 03/17/25 05:45 Ceftriaxone Sodium 50 ml @ 100 mls/hr DAILY@09 IV 03/17/25 09:00 03/17/25 08:57 100 MLS/HR Metronidazole 100 ml @ 100 mls/hr Q8HR IV 03/17/25 09:30 03/17/25 22:03 100 MLS/HR Sodium Chloride 1,000 ml @ 75 mls/hr [id number] IV 03/17/25 13:30 03/17/25 22:03 75 MLS/HR Ondansetron HCl 4 mg Q4HPRN PRN IV 03/17/25 16:00 Morphine Sulfate 2 mg Q4H PRN IV 03/18/25 07:00 03/18/25 11:01 Examination General Appearance: Alert, Oriented X3, Cooperative, moderate distress HEENT: Atraumatic, PERRLA, Mucous membr. moist/pink Respiratory: Clear to auscultation, Normal air movement Cardiovascular: Regular rate, Normal S1, Normal S2, No murmurs Abdominal: wounds with dressings, no bleeding, DIONISIO with sanguineous discharge Extremities: bilateral lower extremity edema 2+ Skin: No rashes, No breakdown Neuro: Normal gait, Normal tone, Sensation intact laboratory and microbiology Laboratory Tests 03/18/25 09:45 Test 03/18/25 09:45 Range/Units Serum Glucose Pending Microbiology Date/Time Source Procedure Growth Status 03/17/25 04:09 Blood Blood Culture - Preliminary NO GROWTH AFTER 24 HOURS OF INCUBATION. Resulted Problem List/Assessment/Plan Problem List/Assessment/Plan #sp laparoscopic cholecystectomy #Acute intractable abdominal pain #Acute intractable emesis #biliary colic #symptomatic cholelithiasis #calculous cholecystitis #nicotine dependency #meth abuse #Diverticulosis without diverticulitis Clear liquid diet IV fluids [place] PRN for pain IV antibiotics , ceftriaxone and metronidazole Zofran IV case discussed with code status: full code Plan discussed with: Patient, Other (rn) My Orders My Orders Orders - LLOYD JAMISON Procedure Category Date Status Time Sodium Chloride 0.9% PHA 03/17/25 In Process 13:30 Ondansetron Hcl PHA 03/17/25 In Process (Zofran) 16:00 Type And Screen BBK 03/18/25 In Process 06:03 PTPTT LAB 03/18/25 In Process 06:03 Date of Service: Mar 18, 2025 Billing Provider: HERNÁN GRANDE MD Common Visit Codes: [id number] INP/OBS CARE(HIGH) LLOYD JAMISON RESIDENT Mar 18, 2025 10:03 HERNÁN GRANDE MD Mar 19, 2025 11:16
[2025-03-18 10:14] LABS: INR 1.17 (0.9-1.15); Prothrombin Time 12.2 sec (9.3-11.8)
[2025-03-18] MEDS ORDERED: ONDANSETRON HCL 4 MG/2 ML VIAL IV PRN (10:15)
[2025-03-18] MEDS ORDERED: HYDROcodone-ACET 5/325MG TAB PO PRN ×2 (10:15→18:45)
[2025-03-18] MEDS: D5W/SOD CHL 0.45%/KCL 20MEQ 1,000 ML IV SCH (10:15)
[2025-03-18 10:16] LABS: Albumin 3.6 g/dL (3.2-4.8); Alkaline Phosphatase 105 U/L (46-116); Anion Gap 5 (5-15); BUN/Creatinine Ratio 8.5 (10.0-20.0); Calcium 8.9 mg/dL (8.7-10.4); Carbon Dioxide 27 mmol/L (20-31); Chloride 104 mmol/L (98-107); Sodium 136 mmol/L (136-145); Total Protein 5.7 g/dL (5.7-8.2)
[2025-03-18 10:17] LABS: Alanine Aminotransferase 247 U/L (7-40); Aspartate Aminotransferase 311 U/L (13-40); Blood Urea Nitrogen 7 mg/dL (9-23); Glucose 136 mg/dL (74-106)
[2025-03-18] MEDS: metroNIDAZOLE 500MG/100ML 100 ML IV SCH (14:09)
[2025-03-18] MEDS: HYDROcodone-ACET 10/325MG TAB PO PRN (21:59)
[2025-03-19] VITALS (8 sets, daily range): BP systolic 99–127; BP diastolic 56–66; PULSE 69–105; RESP 17–19; TEMP 97.5–98.4; O2SAT 92–96
[2025-03-19 06:00] LABS: Basophils # (auto) 0 10 ^3/uL (0-0.2); Basophils % (auto) 0.1 % (0.0-2.0); Eosinophils # (auto) 0 10 ^3/uL (0-0.8); Hematocrit 34.8 % (41.0-53.0); Hemoglobin 12.4 g/dL (13.5-17.5); Lymphocytes % (auto) 9.5 % (10.0-50.0); Mean Corpuscular Hemoglobin 33.1 pg (28.0-32.0); Mean Corpuscular Hgb Conc. 35.6 g/dL (32.0-36.0); Monocytes # (auto) 0.8 10 ^3/uL (0-1.3); Neutrophils # (auto) 9.2 10 ^3/uL (1.6-8.6); Neutrophils % (auto) 83.4 % (37.0-80.0); Platelet Count (auto) 140 10^3/uL (140-450); Red Blood Cells 3.75 10^6/uL (4.5-5.90); Red Cell Distribution Width 13.8 % (11.8-14.3)
[2025-03-19 06:23] LABS: Albumin 3.5 g/dL (3.2-4.8); Alkaline Phosphatase 114 U/L (46-116); Anion Gap 8 (5-15); BUN/Creatinine Ratio 9.1 (10.0-20.0); Carbon Dioxide 24 mmol/L (20-31); Chloride 105 mmol/L (98-107); Potassium 4.2 mmol/L (3.5-5.1); Sodium 137 mmol/L (136-145)
[2025-03-19 06:24] LABS: Bilirubin, Total 0.6 mg/dL (0.2-1.0)
[2025-03-19 06:26] LABS: Alanine Aminotransferase 271 U/L (7-40); Aspartate Aminotransferase 129 U/L (13-40); Blood Urea Nitrogen 7 mg/dL (9-23); Calcium 8.3 mg/dL (8.7-10.4); Glucose 118 mg/dL (74-106); Total Protein 5.6 g/dL (5.7-8.2)
[2025-03-19] MEDS: cefTRIAXone 2GM/50ML D5W 50 ML IV SCH (09:26)
--- NOTE | 2025-03-19 10:13 | DVHPN2 ---
Progress Note - Surgical Date Seen: Mar 19, 2025 Post op day Post op day: 1 Subjective Patient reports: No new complaints Review of Systems: HEENT:Normal, CVS:Normal, RESPIRATORY:Normal, GI:Normal, :Normal, MSK:Abnormal Objective Vital signs Vital Sign Date Time Temp Pulse Resp B/P (MAP) Pulse Ox O2 Delivery O2 Flow Rate FiO2 03/19/25 09:01 97.6 87 18 113/56 (75) 96 97.6 03/18/25 20:00 Room Air* 0 21 Total Intake and Output 03/18/25 03/18/25 03/19/25 15:00 23:00 07:00 Intake Total 100 ml 1680 ml 1100 ml Output Total 600 ml Balance 100 ml 1680 ml 500 ml Medications Current Medications Medications Dose Ordered Sig/Marciano Route Start Time Stop Time Status Last Admin Dose Admin Nitroglycerin 0.4 mg Q5MINP PRN SL 03/17/25 05:45 Potassium Chloride/Dextrose/ Sod Cl 1,000 ml @ 150 mls/hr Q6H40M IV 03/18/25 10:15 03/19/25 05:49 150 MLS/HR Metronidazole 100 ml @ 100 mls/hr Q8HR IV 03/18/25 14:00 03/20/25 13:59 03/19/25 05:43 100 MLS/HR Ondansetron HCl 4 mg Q4HP PRN IV 03/18/25 10:15 Morphine Sulfate 1 mg Q4HPRN PRN IV 03/18/25 10:15 Ceftriaxone Sodium/Dextrose 50 ml @ 50 mls/hr DAILY IV 03/19/25 10:00 03/21/25 09:59 03/19/25 09:26 50 MLS/HR Acetaminophen/ Hydrocodone Bitart 1 tab Q4HP PRN PO 03/18/25 19:00 03/18/25 21:59 1 TAB Laboratory Laboratory Tests 03/19/25 05:13 Test 03/19/25 05:13 Range/Units Serum Glucose 118 H 74-106 mg/dL Microbiology Date/Time Source Procedure Growth Status 03/18/25 07:43 Peritoneal Fluid Gram Stain Pending Resulted 03/18/25 07:43 Peritoneal Fluid Anaerobic Culture Pending Resulted 03/18/25 07:43 Peritoneal Fluid Aerobic Culture - Preliminary Resulted 03/17/25 04:09 Blood Blood Culture - Preliminary NO GROWTH AFTER 48 HOURS OF INCUBATION. Resulted Examination: GENERAL:Normal, HEENT:Normal, NECK:Normal, LUNGS:Normal, CVS:Normal, ABDOMEN:Normal (inc c/d/i, DIONISIO w s/s output, abd aTTP) Problem List/Assessment/Plan Problems: (1) Cholecystitis (2) Cholecystitis, acute with cholelithiasis (3) Cholecystitis with gangrene of gallbladder (4) Cholelithiasis Assessment and Plan POD 1 lap-felipe for acute on chronic cholecystitis, gangrenous cholecystitis doing well, pain well controlled tolerating PO DIONISIO drain teaching prior to dc, will remove in clinic Tb normalized ok to dc home, f/u surgery clinic in 1wk Plan discussed with Plan discussed with: Patient Visit Coding Surgery Date of Service if different f: Mar 19, 2025 Billing Provider: MEREDITH JOSEPH MD Surgery Visit Codes: [id number] INP/OBS CARE(MOD) MEREDITH JOSEPH MD Mar 19, 2025 10:13
[2025-03-19] MEDS ORDERED: LEVO750T40 PO (10:54)
[2025-03-19] MEDS ORDERED: ACET-1079 PO (10:54)
[2025-03-19] MEDS: IBUPROFEN 800 MG TAB PO SCH (13:29)
[2025-03-19] MEDS: ACETAMINOPHEN 325 MG TAB PO SCH (13:30)
--- NOTE | 2025-03-20 00:50 | DVHPNRES ---
Progress Note Date Seen: Mar 19, 2025 Resident Creating Document: LLOYD JAMISON RESIDENT Has the PT tested + for MRSA If YES, has PT been informed?: No Medical Necessity Reason Pt with a Central, PICC or Fol: No Subjective Review of Systems A 60 year old male patient with no PMHX who presented to the ER with the chief complaint of acute right upper quadrant abdominal pain that started 1 day ago , progressively getting worse, currently 5/10 intensity that increases on palpation , associated with nausea and vomiting, patient denies any other complaint at this time. CT abdomen showed cholelithiasis , diverticulosis withiout diverticulitis, vitals remain stable . Patient is poor historian. past surgical history: denies past social history: alcohol occasionally meth positive smokes 6 cigarettes daily , last time was yesterday allergies: no known allergies 03/18/2025: patient had laparoscopic cholecystectomy: distended edematous gallbladder with gangrenous upper gallbladder wall surface, with no complications 03/19/2025: DIONISIO drain: 100cc , serosanguineous, pain controlled, no stool pass but flatus positive Objective vital signs Vital Sign Date Time Temp Pulse Resp B/P (MAP) Pulse Ox O2 Delivery O2 Flow Rate FiO2 03/19/25 21:00 98.2 83 18 115/66 (82) 94 98.2 03/19/25 20:00 Room Air* 0 21 Total Intake and Output 03/19/25 03/19/25 03/20/25 15:00 23:00 07:00 Intake Total 150 ml 1900 ml 1000 ml Output Total 75 ml 1585 ml Balance 75 ml 315 ml 1000 ml medications Current Medications Medications Dose Ordered Sig/Marciano Route Start Time Stop Time Status Last Admin Dose Admin Nitroglycerin 0.4 mg Q5MINP PRN SL 03/17/25 05:45 Potassium Chloride/Dextrose/ Sod Cl 1,000 ml @ 150 mls/hr Q6H40M IV 03/18/25 10:15 03/19/25 23:42 150 MLS/HR Metronidazole 100 ml @ 100 mls/hr Q8HR IV 03/18/25 14:00 03/20/25 13:59 03/19/25 21:29 100 MLS/HR Ondansetron HCl 4 mg Q4HP PRN IV 03/18/25 10:15 Morphine Sulfate 1 mg Q4HPRN PRN IV 03/18/25 10:15 Ceftriaxone Sodium/Dextrose 50 ml @ 50 mls/hr DAILY IV 03/19/25 10:00 03/21/25 09:59 03/19/25 09:26 50 MLS/HR Acetaminophen 650 mg TID PO 03/19/25 14:00 Hold 03/19/25 13:30 650 MG Ibuprofen 800 mg TID PO 03/19/25 14:00 03/19/25 21:29 800 MG Examination General Appearance: Alert, Oriented X3, Cooperative, moderate distress HEENT: Atraumatic, PERRLA, Mucous membr. moist/pink Respiratory: Clear to auscultation, Normal air movement Cardiovascular: Regular rate, Normal S1, Normal S2, No murmurs Abdominal: wounds with dressings, no bleeding, DIONISIO with sanguineous discharge Extremities: bilateral lower extremity edema 2+ Skin: No rashes, No breakdown Neuro: Normal gait, Normal tone, Sensation intact laboratory and microbiology Laboratory Tests 03/19/25 05:13 Test 03/19/25 05:13 Range/Units Serum Glucose 118 H 74-106 mg/dL Microbiology Date/Time Source Procedure Growth Status 03/18/25 07:43 Peritoneal Fluid Gram Stain - Final Resulted 03/18/25 07:43 Peritoneal Fluid Anaerobic Culture - Preliminary Resulted 03/18/25 07:43 Peritoneal Fluid Aerobic Culture - Preliminary Resulted 03/17/25 04:09 Blood Blood Culture - Preliminary NO GROWTH AFTER 48 HOURS OF INCUBATION. Resulted Problem List/Assessment/Plan Problem List/Assessment/Plan #sp laparoscopic cholecystectomy #Acute intractable abdominal pain #Acute intractable emesis #biliary colic #symptomatic cholelithiasis #calculous cholecystitis #nicotine dependency #meth abuse #Diverticulosis without diverticulitis Soft mechanical diet Tylenol and ibuprofen for pain IV antibiotics , ceftriaxone and metronidazole Zofran IV case discussed with code status: full code Plan discussed with: Patient, Other (rn) My Orders My Orders Orders - LLOYD JAMISON Procedure Category Date Status Time Acetaminophen Tablet PHA 03/19/25 In Process (Tylenol Tablet) 14:00 Ibuprofen Tablet PHA 03/19/25 In Process (Motrin Tablet) 14:00 Date of Service: Mar 19, 2025 Billing Provider: HERNÁN GRANDE MD Common Visit Codes: [id number] INP/OBS CARE(HIGH) LLOYD JAMISON RESIDENT Mar 20, 2025 00:50 HERNÁN GRANDE MD Mar 20, 2025 13:46
[2025-03-20 01:16] VITALS: BP 107/60; PULSE 89; RESP 18; TEMP 98.2; O2SAT 95
[2025-03-20 05:00] VITALS: BP 108/67; PULSE 72; RESP 18; TEMP 97.6; O2SAT 95
[2025-03-20 08:00] VITALS: PULSE 60; RESP 17; O2SAT 95
[2025-03-20] MEDS ORDERED: IBUP-1455 PO (08:45)
[2025-03-20 09:00] VITALS: BP 116/73; PULSE 60; RESP 17; TEMP 97.9; O2SAT 95
--- NOTE | 2025-03-20 11:15 | DVHPN2 ---
Progress Note Date Seen: Mar 20, 2025 Has the PT tested + for MRSA If YES, has PT been informed?: No Medical Necessity Reason Pt with a Central, PICC or Fol: No Subjective Patient reports: No new complaints Objective vital signs Vital Sign Date Time Temp Pulse Resp B/P (MAP) Pulse Ox O2 Delivery O2 Flow Rate FiO2 03/20/25 09:00 97.9 60 17 116/73 (87) 95 97.9 03/19/25 20:00 Room Air* 0 21 Total Intake and Output 03/19/25 03/19/25 03/20/25 15:00 23:00 07:00 Intake Total 150 ml 1900 ml 2700 ml Output Total 75 ml 1625 ml 1690 ml Balance 75 ml 275 ml 1010 ml medications Current Medications Medications Dose Ordered Sig/Marciano Route Start Time Stop Time Status Last Admin Dose Admin Nitroglycerin 0.4 mg Q5MINP PRN SL 03/17/25 05:45 Metronidazole 100 ml @ 100 mls/hr Q8HR IV 03/18/25 14:00 03/20/25 13:59 03/20/25 05:00 100 MLS/HR Ondansetron HCl 4 mg Q4HP PRN IV 03/18/25 10:15 Morphine Sulfate 1 mg Q4HPRN PRN IV 03/18/25 10:15 Ceftriaxone Sodium/Dextrose 50 ml @ 50 mls/hr DAILY IV 03/19/25 10:00 03/21/25 09:59 03/20/25 09:39 50 MLS/HR Acetaminophen 650 mg TID PO 03/19/25 14:00 Hold 03/19/25 13:30 650 MG Ibuprofen 800 mg TID PO 03/19/25 14:00 03/20/25 06:06 800 MG Examination: GENERAL:Normal, NECK:Normal, LUNGS:Normal, CVS:Normal, ABDOMEN:Normal (s, nd, attp, inc c/d/i, JASMIN w S/S), MSK:Normal, SKIN:Normal laboratory and microbiology Laboratory Tests 03/19/25 05:13 Test 03/19/25 05:13 Range/Units Serum Glucose 118 H 74-106 mg/dL Problem List/Assessment/Plan Problem List/Assessment/Plan 03/20/25 POD 2 lap fel[place] recovering appropriately tolerating PO jasmin w s/s output oob and ambulate advance bowel reg ok to d/c from surgical stand point, drain care teaching prior to d/c f/u in surgery clinic in 1 week Plan discussed with: Patient MEREDITH JOSEPH MD Mar 20, 2025 11:15
--- NOTE | 2025-03-20 12:05 | DVHDSRES ---
Discharge Summary Date of Admission Resident Creating Document: LLOYD JAMISON RESIDENT Mar 17, 2025 at 05:42 Date of Discharge: Mar 19, 2025 Admitting Diagnosis #sp laparoscopic cholecystectomy Labs/Diagnostic Data: Laboratory Results Test 03/19/25 05:13 03/18/25 09:45 03/17/25 06:56 03/17/25 04:21 White Blood Count 11.0 10^3/uL (4.4-10.8) Red Blood Count 3.75 10^6/uL (4.5-5.90) Hemoglobin 12.4 g/dL (13.5-17.5) Hematocrit 34.8 % (41.0-53.0) Mean Corpuscular Volume 93.0 fL (80.0-100.0) Mean Corpuscular Hemoglobin 33.1 pg (28.0-32.0) Mean Corpuscular Hemoglobin Concent 35.6 g/dL (32.0-36.0) Red Cell Distribution Width 13.8 % (11.8-14.3) Platelet Count 140 10^3/uL (140-450) Mean Platelet Volume 9.3 fL (6.9-10.8) Neutrophils (%) (Auto) 83.4 % (37.0-80.0) Lymphocytes (%) (Auto) 9.5 % (10.0-50.0) Monocytes (%) (Auto) 7.0 % (0.0-12.0) Eosinophils (%) (Auto) 0.0 % (0.0-7.0) Basophils (%) (Auto) 0.1 % (0.0-2.0) Neutrophils # (Auto) 9.2 10 ^3/uL (1.6-8.6) Lymphocytes # (Auto) 1.0 10 ^3/uL (0.4-5.4) Monocytes # (Auto) 0.8 10 ^3/uL (0-1.3) Eosinophils # (Auto) 0 10 ^3/uL (0-0.8) Basophils # (Auto) 0 10 ^3/uL (0-0.2) Nucleated Red Blood Cells 0.0 % Sodium Level 137 mmol/L (136-145) Potassium Level 4.2 mmol/L (3.5-5.1) Chloride Level 105 mmol/L (98-107) Carbon Dioxide Level 24 mmol/L (20-31) Anion Gap 8 (5-15) Blood Urea Nitrogen 7 mg/dL (9-23) Creatinine 0.77 mg/dL (0.700-1.30) Glomerular Filtration Rate Calc 103 mL/min (>90) BUN/Creatinine Ratio 9.1 (10.0-20.0) Serum Glucose 118 mg/dL (74-106) Calcium Level 8.3 mg/dL (8.7-10.4) Total Bilirubin 0.6 mg/dL (0.2-1.0) Aspartate Amino Transferase (AST) 129 U/L (13-40) Alanine Aminotransferase (ALT) 271 U/L (7-40) Alkaline Phosphatase 114 U/L (46-116) Total Protein 5.6 g/dL (5.7-8.2) Albumin 3.5 g/dL (3.2-4.8) Prothrombin Time 12.2 sec (9.3-11.8) Prothrombin Time INR 1.17 (0.9-1.15) Activated Partial Thromboplast Time 29.0 SEC (24.5-34.5) Influenza Type A Antigen Negative (Negative) Influenza Type B Antigen Negative (Negative) SARS-CoV-2 Antigen (Rapid) Negative (NEGATIVE) Lactic Acid Level 1.3 mmol/L (0.4-2.0) Test 03/17/25 02:24 03/17/25 02:15 Hemoglobin A1c 5.7 % A1C (<5.7) B-Type Natriuretic Peptide 12.18 pg/mL (0-100) Lipase 63 U/L (12-53) Thyroid Stimulating Hormone (TSH) 4.06 uIU/mL (0.55-4.78) Plasma/Serum Blood Alcohol < 3.0 mg/dL (<10) Hepatitis B Surface Antigen Negative (Negative) Hepatitis C Antibody Negative (Negative) Urine Color Yellow (Yellow) Urine Clarity Clear (Clear) Urine pH 6.0 (5.0-9.0) Urine Specific [place] 1.031 (1.001-1.035) Urine Protein Negative (Negative) Urine Ketones Negative (Negative) Urine Blood Negative /uL (Negative) Urine Nitrite Negative (Negative) Urine Bilirubin Negative (Negative) Urine Urobilinogen Normal mg/dL (Negative) Urine Leukocyte Esterase Negative /uL (Negative) Urine RBC <1 /hpf (0 - 3) Urine Microscopic WBC < 1 /HPF (0-3) Urine Squamous Epithelial Cells Few /hpf (<5) Urine Bacteria Few /hpf (None Seen) Urine Mucus Few (None Seen) Urine Glucose Normal mg/dL (Normal) Urine Opiates Screen Neg (NEGATIVE) Urine Fentanyl Screen Neg (NEGATIVE) Urine Barbiturates Screen Neg (NEGATIVE) Urine Phencyclidine Screen Neg (NEGATIVE) Urine Amphetamines Screen Pos (NEGATIVE) Urine Benzodiazepines Screen Neg (NEGATIVE) Urine Cocaine Screen Neg (NEGATIVE) Urine Cannabinoids Screen Neg (NEGATIVE) Other Laboratory Tests 03/19/25 05:13 Brief Hx & Hospital Course: A 60-year-old male with no significant past medical history presented with acute right upper quadrant abdominal pain progressively worsening over 1 day, associated with nausea and vomiting. Imaging revealed cholelithiasis and diverticulosis without signs of diverticulitis. The patient underwent laparoscopic cholecystectomy on 03/18/2025 for a distended, edematous gallbladder with gangrenous changes on the gallbladder wall. Postoperative course was uncomplicated. DIONISIO drain output on 03/19/2025 was 100 cc of serosanguineous fluid. The patient remained pain controlled, had no bowel movement but passed flatus, and was tolerating a soft mechanical diet. Emesis and abdominal pain resolved. IV antibiotics (ceftriaxone and metronidazole) and IV Zofran were administered. Patient has a history of meth use, nicotine dependence (6 cigarettes daily), and occasional alcohol use. He was full code throughout the admission. Plan was discussed with the patient. He is to continue supportive care and follow up outpatient as needed. Discharge Medications: Acetaminophen, Ibuprofen as needed for pain, Levofloxacin PO Follow-Up: Outpatient primary care and surgical clinic Case discussed with Dr Lea Full code Consults/Reason for consult surgery due to cholecystitis Operations or Procedures Preop Diagnosis: symptomatic cholelithiasis acute calculous cholecystitis Postop Diagnosis: acute on chronic cholecystitis gangrenous calculous cholecystitis Surgeon: Jordy Wilhelm MD Brushing Operator: Angelika Lopez Anesthesiologist: Dr Perez Anesthesia: General Drains: DIONISIO Consent: The patient was informed of the risks and benefits of the procedure. These include but are not limited to complications of anesthesia, postoperative infection, incomplete relief of symptoms, recurrence of symptoms, damage to blood vessels, nerves and tendons, deep venous thrombosis, pulmonary embolism and possible need for repeat surgery in the future. Estimated Blood Loss: 50cc Findings: suppurative pericholecystic fluid distended edematous gallbladder with gangrenous upper gallbladder wall surface extensive pericholecystic adhesions requiring extensive meticulous dissection for exposure of critical view Name of Procedure Performed laparoscopic cholecystectomy Procedure Details Procedure Details: The patient was taken to the operating room and placed in the supine position. General endotracheal anesthesia was then induced. The patients abdomen was sterilely prepped and draped in the standard surgical fashion. An incision was then made supraumbilically with an 11 blade knife and Veress needle was inserted into the peritoneum and the abdomen was insufflated to 15mmHg. Veress was removed and a 6mm optiview trochar was inserted under visualization. Peritoneum was inspected and no entry related injuries appreciated. Patient was positioned with the head up and right side airplaned. Next under visualization 15mm trochar was inserted in the upper epigastrium and two additional 5mm working trochars in the right costal margin. Attention was than turned to the RUQ. Purulent serous ascited was noted in the RUQ and a fluid sample was suctioned and sent for C&S. The gallbladder was masked with extensive omental adhesions which were carefully bluntly. Once the gallbladder was exposed it was very distended and rigid and required decompression to be grasped. The gallbladder was very edematous and thick walled, and the upper portion of the gallbladder was necrotic/gangrenous. The gallbladder was retracted superiorly and outwards exposing the cystic triangle. This was carefully bluntly skeletonized finally exposing the critical view showing two structures only. Than the cystic duct was double clipped and additional upper clip placed, and than sharply divided between the clips. Similarly, the cystic artery was clipped and divided. The gallbladder was freed from its peritoneal attachments using a harmonic [place] scalpel. Once fully freed, endoscopic retrieval bag was inserted and the gallbladder was removed through the epigastric port. The epigastric fascial opening had to be widened in order to allow delivery due to a large stone inside the lumen. Once the gallbladder was passed off, the liver bed was inspected and any bleeding was coagulated. Once hemostasis was achieved, the RUQ was suctioned and irrigated. Hemostasis was again confirmed. A DIONISIO drain was inserted along the liver bed and externalized through the upper right costal port side, and secured with a nylon suture. Insufflation was than released and all trochars removed. The fascia of the epigastric port was reapproximated with 2-0 Vicryl suture in figure of 8 fashion. The skin of all port sites was than closed with Monocryl in a subcuticular fashion, and Dermabond was applied over the incision sites. All needle, instrument and sponge counts correct times two. Patient was extubated and transferred to the recovery room in stable condition. No intraoperative complications. Specimen: gallbladder peritoneal fluid for C&S Condition Stable Condition at Discharge: Stable Final Diagnosis/Problems List #sp laparoscopic cholecystectomy #Acute intractable abdominal pain #Acute intractable emesis #biliary colic #symptomatic cholelithiasis #calculous cholecystitis #nicotine dependency #meth abuse #Diverticulosis without diverticulitis Discharge Disposition: Home Discharge Instruct/Medications Diet: See Comment Diet comment: advance diet slow, soft diet Activity: Light activity Follow Up/Referral: f/u with surgeon 1 week Medications: see prescription Discharge Statement: "Patient was advised to return to the ER or call 911 if any headaches, dizziness, shortness of breath, chest pain, abdominal pain, bleeding, fevers, or worsening of medical condition. Patient was counseled about treatment plan, medications, possible side effects, patientverbalized understanding. All questions were answered to the best of my ability. This discharge took greater then 30 minutes in planning, reviewing documentation, counseling the patient, and discussing with other team members." ASSESSMENT ASSESSMENT Assessment sp cholecystectomy Date of Service: Mar 19, 2025 Billing Provider: HERNÁN LEA MD Common Visit Codes: 77103-CCE/OBS DISCH DAY >30min LLOYD JAMISON RESIDENT Mar 20, 2025 12:04 HERNÁN LEA MD Mar 25, 2025 14:45
[2025-03-20 12:43] VITALS: BP 116/73; PULSE 60; RESP 17; TEMP 97.9; O2SAT 95
[2025-03-20 13:00] VITALS: BP 123/78; PULSE 63; RESP 18; TEMP 97.9; O2SAT 95
== END 2025-03-20 15:16 | disposition home or self-care (01) | DRG 263 ==
LOC: ER 02:08 → EDBD 02:08 → OVERFLOW 05:42 → WEST WING 18:19
PROVIDERS: ADMIT Student in an Organized Health Care Education/Training Program; ATTEND Student in an Organized Health Care Education/Training Program
PROC: 0FT44ZZ Resection of Gallbladder, Percutaneous Endoscopic Approach (ICD-10-PCS; principal; 2025-03-18 07:18)
DX: K80.12 Calculus of gallbladder with acute and chronic cholecystitis without obstruction (principal); K82.A1 Gangrene of gallbladder in cholecystitis; F17.210 Nicotine dependence, cigarettes, uncomplicated; K82.8 Other specified diseases of gallbladder; K66.0 Peritoneal adhesions (postprocedural) (postinfection); Z20.822 Contact with and (suspected) exposure to COVID-19; K57.30 Diverticulosis of large intestine without perforation or abscess without bleeding
CPT/HCPCS: 36415; 71045; 74177; 76705; 80053; 80307; 80320; 81001; 83036; 83605; 83690; 83880; 84443; 85025; 85610; 85730; 86803; 86850; 86900; 86901; 87040; 87070; 87075; 87205; 87340; 87426; 87804; 93306; 99291; G0378; J0330; J1100; J2250; J2405; J2704; J3490